=== PATIENT | female | born 1980 | race Caucasian/White ===

== ENCOUNTER 2021-07-26 11:58 | Outpatient (CLI) | payer OTHER, SELFPAY ==
--- NOTE | ~2021-07-26 | XR_ITS ---
XR sacroiliac joints min 3V DATE: 07/26/2021 12:29 INDICATION: Bilateral sacroiliac pain TECHNIQUE: AP and bilateral oblique views COMPARISON: None FINDINGS: No fracture, dislocation, erosive change or ankylosis at the sacroiliac joints. IMPRESSION: Normal sacroiliac joints Reviewed, dictated and finalized at [facility]. Reviewed, dictated and finalized at location [facility]. IMPRESSION: Normal sacroiliac joints
--- NOTE | ~2021-07-26 | XR_ITS ---
EXAMINATION: HAND-CARMEN ARTHRITIS 3+VIEWS DATE: 07/26/2021 12:29 INDICATION: Osteoarthritis with general joint pain. TECHNIQUE: Posteroanterior, lateral, and oblique views of the left and of the right hands as well as a ballcatchers view of both hands were obtained. COMPARISON: None. FINDINGS: Alignment is normal at the bilateral hands and wrists. Joint spaces are relatively preserved at the b ilateral hands and wrists. No erosions to suggest inflammatory arthritis. Soft tissues are unremarkab le. IMPRESSION: 1. . Negative bilateral hand radiographs. Reviewed, dictated and finalized at location [facility].
--- NOTE | ~2021-07-26 | XR_ITS ---
XR lumbar spine min 4V DATE: 07/26/2021 12:29 INDICATION: Back pain TECHNIQUE: AP, lateral, bilateral oblique views and coned lateral lumbosacral view COMPARISON: None FINDINGS: Normal alignment of the lumbar spine. No fracture or bone destruction, spondylolysis or spo ndylolisthesis. There is minimal degenerative spurring of the lumbar spine but lumbar and lumbosacral interspaces are well preserved. The sacroiliac joints appear normal. IMPRESSION: Minimal degenerative spurring Reviewed, dictated and finalized at location [facility].
--- NOTE | ~2021-07-26 | XR_ITS ---
XR cervical spine 4-5V DATE: 07/26/2021 12:29 INDICATION: Neck pain TECHNIQUE: AP, open-mouth, lateral and swimmer views COMPARISON: None FINDINGS: There is mild reversal of cervical curvature. C1 and C2 are normally aligned and the odontoid process is intact. No fracture or dislocation or lock ed facet or prevertebral soft tissue swelling. Cervical interspaces are preserved. IMPRESSION: Mild reversal of cervical curvature Reviewed, dictated and finalized at location [facility].
[2021-07-26 13:31] LABS: Complement C3 124 mg/dL (88-165)
[2021-07-26 14:13] LABS: Vitamin D 25 Hydroxy 49.1 ng/mL
[2021-07-29 03:53] LABS: Thyroid Peroxidase Antibodies <1 IU/mL (<9)
[2021-07-31 12:30] LABS: SS-A <1.0; SS-B <1.0
[2021-07-31 12:30] LABS: SM Antibody <1.0; SM/RNP Antibody <1.0
[2021-07-31 12:56] LABS: Anti Cyclic Citrullinated Pept <16 Units (<20)
[2021-07-31 14:45] LABS: Thyroid Stimulating Immunoglob <89 % baseline (<140)
[2021-08-01 15:53] LABS: Lupus dRVVT 1:1 Mix Interpreta Not Indicated; Lupus dRVVT Screen 37 sec (<=45); PTT-LA Screen 33 sec (<=40)
[2021-08-02 06:47] LABS: Anti Cardio Antibody IgM <2.0 MPL-U/mL (<20.0); Anti Cardiolipin Antibody IgA <2.0 APL-U/mL (<20.0); Anti Cardiolipin Antibody IgG <2.0 GPL-U/mL (<20.0)
== END 2021-07-26 11:59 | disposition home or self-care (01) ==
LOC: ANHIMG 12:04
PROVIDERS: PCP Family Medicine; Visit Provider Internal Medicine
DX: R76.8 Other specified abnormal immunological findings in serum (principal); M19.90 Unspecified osteoarthritis, unspecified site; R53.83 Other fatigue; Z51.81 Encounter for therapeutic drug level monitoring; Z79.899 Other long term (current) drug therapy; Z71.89 Other specified counseling; M54.2 Cervicalgia
CPT/HCPCS: 36415; 72050; 72110; 72202; 73130; 82164; 82306; 84445; 85613; 85730; 86146; 86147; 86160; 86200; 86225; 86235; 86376